=== PATIENT | male | born 1950 | race Caucasian/White ===

== ENCOUNTER 2024-07-09 12:34 | Day surgery (SDC) | payer MEDICARE ==
[2024-07-05 14:48] VITALS: BMI 29.8
[~2024-07-09 12:34] MED LIST: LIDOCAINE 1% (10MG/ML) FOR IV START INTRADERMA PRN
[2024-07-09 13:12] VITALS: TEMP 96.5
[2024-07-09] MEDS: IV FLUID CONTINUATION 1,000 ML IV ONE (13:16)
[2024-07-09] MEDS: LACTATED RINGERS 1,000 ML IV SCH (13:16)
[2024-07-09] MEDS ORDERED: PROPOFOL 10 MG/ML 20 ML VIAL IV ONE (14:28)
--- NOTE | 2024-07-09 14:51 | P.PCN ---
Date of Procedure: 07/09/24 Procedure(s) Performed: BRIEF HISTORY: Patient is a 73-year-old pleasant white male scheduled for an elective colonoscopy as a part of screening for colon cancer/positive Cologuard. PROCEDURE PERFORMED: Colonoscopy snare polypectomy. PREOPERATIVE DIAGNOSIS: Screening for colon cancer/positive Cologuard. IV sedation per Anesthesia. PROCEDURE: After informed consent was obtained, the patient, was brought into the endoscopy unit. IV sedation was administered by Anesthesia under continuous monitoring. Digital rectal examination was normal. Initially the Olympus CF-160 flexible video colonoscope was then inserted in the rectum, gradually advanced into the cecum without any difficulty. Careful examination was performed as the scope was gradually being withdrawn. Ileocecal valve and the appendiceal orifice were visualized and appeared normal. Prep was excellent. Mucosa of the cecum, appeared normal. Descending colon there was a 5 mm sessile polyp removed by cold snare polypectomy. Rest of the ascending colon, transverse colon, normal. The descending colon there is a 5 mm and 6 mm polyp removed by cold snare polypectomy. In the sigmoid colon there was a 6 mm sessile polyp removed by cold snare polypectomy. The rectum appeared normal. Retroflexion was performed in the rectum and no lesions were seen. The patient tolerated the procedure well. IMPRESSION: 5 mm ascending colon polyp status post cold snare polypectomy 5 mm x 2 descending colon polyp status post cold snare polypectomy 6 mm sigmoid colon polyp status post cold snare polypectomy RECOMMENDATIONS: Findings of this examination were discussed with the patient as well as his family. He was advised to follow-up with the biopsy results. If the biopsy reveals adenoma he can have repeat colonoscopy in 3 years..
[2024-07-09 15:15] VITALS: BP 149/88; PULSE 75; RESP 18
== END 2024-07-09 15:36 | disposition home or self-care (01) ==
LOC: ORWHC2ENDO 12:34
PROVIDERS: ATTEND Internal Medicine Gastroenterology
DX: Z12.11 Encounter for screening for malignant neoplasm of colon (principal); D12.4 Benign neoplasm of descending colon; K63.5 Polyp of colon; I10 Essential (primary) hypertension; E78.5 Hyperlipidemia, unspecified; N40.0 Benign prostatic hyperplasia without lower urinary tract symptoms; Z79.899 Other long term (current) drug therapy; Z87.891 Personal history of nicotine dependence
CPT/HCPCS: 88305; 45385; J2704

== ENCOUNTER → 2024-09-06 | Outpatient (CLI) | payer MEDICARE ==
[2024-09-06 10:33] LABS: ALT 24 U/L (10-49); AST 17 U/L (14-35); Chol/HDL Ratio 2.53 Ratio; LDL Cholesterol,Calculated 55.3 mg/dL (0.0-131.0); VLDL Calculation 13.14 mg/dL (5.00-40.00)
== END | disposition home or self-care (01) ==
LOC: LABWHC1 07:03
PROVIDERS: ATTEND Internal Medicine Interventional Cardiology
DX: E78.2 Mixed hyperlipidemia (principal)
CPT/HCPCS: 36415; 80061; 84450; 84460

== ENCOUNTER → 2024-09-26 | Outpatient (CLI) | payer MEDICARE ==
[2024-09-26 14:51] LABS: HCT 44.7 % (39.6-50.0); MCH 31.6 pg (27.0-32.0); MCHC 33.6 g/dL (32.0-37.0); MCV 94.3 FL (80.0-97.0); Mean Platelet Volume 12.2 FL (9.5-12.2); NRBC Per 100 WBC 0 X 10*3/uL (0.00-0.01); Platelet Count 190 X 10*3/uL (140-440); RBC 4.74 X 10*6/uL (4.40-5.60); RDW 11.8 % (11.5-14.5); WBC 8.32 X 10*3/uL (4.50-10.00)
[2024-09-26 14:57] LABS: Blood Urea Nitrogen 23.6 mg/dL (9.0-27.0); Carbon Dioxide 25.7 mmol/L (21.6-31.8); Chloride 105 mmol/L (96-109); Potassium 4.4 mmol/L (3.5-5.5); Sodium 141 mmol/L (135-145)
== END | disposition home or self-care (01) ==
LOC: LABPAT 11:37
PROVIDERS: ATTEND Internal Medicine Interventional Cardiology
DX: Z01.812 Encounter for preprocedural laboratory examination (principal); I25.10 Atherosclerotic heart disease of native coronary artery without angina pectoris
CPT/HCPCS: 80051; 82565; 84520; 85027

== ENCOUNTER → 2024-10-04 | Day surgery (SDC) | payer MEDICARE ==
[2024-10-01 14:32] VITALS: BMI 30.3
[~2024-10-04] MED LIST changes: +ALPRAZolam 0.25 MG TAB PO PRN; +ALPRAZolam 0.5 MG TAB PO PRN; +ASPIRIN 325 MG TAB PO STA; +ASPIRIN 81 MG PO SCH; +ATORVASTATIN 20 MG TAB PO SCH; +HEPARIN SODIUM,PORCINE (1 ML) 2,500 UNIT in SODIUM CHLORIDE 0.9% 250 ML IRRIGATION PRN; +HEPARIN SODIUM,PORCINE 10,000 UNIT in SODIUM CHLORIDE 0.9% 1,000 ML IRRIGATION PRN; -LIDOCAINE 1% (10MG/ML) FOR IV START INTRADERMA PRN; +METOPROLOL TARTRATE 25 MG TAB PO SCH; +NITROGLYCERIN SL TABS 0.4 MG TAB SUBLINGUAL PRN; +RX INFO: IV CONTRAST WAS GIVEN 1 EACH MISC MISCELLANE PRN; +SODIUM CHLORIDE 0.9% 1,000 ML IV SCH; +amLODIPine 5 MG TAB PO SCH
[2024-10-04] MEDS: SODIUM CHLORIDE 0.9% 1,000 ML in EMPTY BAG 1 BAG IV SCH (06:38)
[2024-10-04] MEDS: IV FLUID CONTINUATION 1,000 ML IV ONE (06:41)
[2024-10-04 06:53] VITALS: RESP 16; TEMP 98.6
[2024-10-04] MEDS: fentaNYL (PF) 50 MCG/1 ML VIAL IVP ONE (07:35)
[2024-10-04] MEDS: LIDOCAINE 1% INJ 10MG/ML (20 ML MDV) SQ ONE (07:35)
[2024-10-04] MEDS: VERAPAMIL SYRINGE (5 MG/10 ML) INTRAARTER ONE (07:37)
[2024-10-04] MEDS: HEPARIN SODIUM 1,000 UN/ML (10ML VL) IVP ONE (07:38)
[2024-10-04] MEDS: IOPAMIDOL-370 100ML BTL INJ ONE (07:50)
--- NOTE | 2024-10-04 08:10 | P.CARDCATH ---
Date of Procedure: 10/04/24 Description of Procedure: Cardiac Catheterization: The patient is a 73-year-old male with history of hypertension hyperlipidemia, abnormal coronary calcium score who underwent an MPI that showed evidence of inferior and inferolateral wall ischemia. Recommendations were made regarding cardiac catheterization, the risks and the complications were discussed with the patient who is in full understanding and agreement. Procedure Description: Patient was brought to microbiology lab technician in fasting semi-sedated state after receiving Fentanyl and Benadryl achieiving moderate conscious sedated state. Using Xylocaine Anesthesia and modified Seldinger technique, a 6-[place] sheath was introduced in the right radial artery . Subsequently, selective coronary angiography was performed using a 5-[place] 3.5 bend Malia catheter. Multiple views of the coronary artery including hemiaxial views were obtained. The 5 [place] pigtail catheter was used to cross the aortic valve and LVEDP was calculated. Following that, catheter and sheath were removed. Hemostasis was obtained with deployment of vascular band . There was no immediate complication. Patient was returned to room in stable condition. Of note, the patient received a total of 5000 units of intravenous heparin as well as intra-arterial verapamil. Findings: Fluoroscopy: Significant calcification of the LAD and the RCA was noted. Left main: This is a large size vessel, bifurcating into LAD and left circumflex, left main has no evidence of high-grade stenosis LAD: This is a large size vessel, reaching to the apex, giving rise to a large diagonal branch in the midsegment. At the site of the diagonal branch takeoff there is a 30 to 40% tubular lesion with no high-grade stenosis Left circumflex: This is a large nondominant vessel giving rise to a large obtuse marginal branch the obtuse marginal branch has a 50 to 60% plaque the rest of the vessel has no high-grade stenosis RCA: This is a dominant vessel chronically occluded at the takeoff of the acute marginal branch with no significant antegrade flow, calcified. There is collateral through the septal quality assurance analyst and the obtuse marginal branch to the PDA and the PLV going back to the mid vessel Left Ventriculogram: Not performed Hemodynamics: There was no gradient across aortic valve, LVEDP was 18-20 mmHg Conclusion: 1. Calcified coronary arteries 2. 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 Mild to moderate disease in the LAD and left circumflex 4. Right dominance Recommendations: I have recommended to optimize his medical regimen and continue clinical observation with aggressive coronary risks modifications. If the patient has significant symptoms then he will be evaluated for attempted revascularization of the chronic totally occluded RCA. The findings and the recommendations were discussed with the patient and the family and they were in full understanding and agreement. Duration of sedation is 16 minutes.
[2024-10-04 09:50] VITALS: BP 144/67
[2024-10-04 11:11] VITALS: PULSE 65
== END | disposition home or self-care (01) ==
LOC: CATHCVL 06:11
PROVIDERS: ATTEND Internal Medicine Interventional Cardiology
DX: I25.10 Atherosclerotic heart disease of native coronary artery without angina pectoris (principal); I25.82 Chronic total occlusion of coronary artery; E78.2 Mixed hyperlipidemia; I10 Essential (primary) hypertension; F10.90 Alcohol use, unspecified, uncomplicated; Z87.891 Personal history of nicotine dependence; Z79.899 Other long term (current) drug therapy
CPT/HCPCS: 93458; 99152; C1894; C1769; J2003; J1644; Q9967; J3010